=== PATIENT | female | born 1950 | race Caucasian/White ===

== ENCOUNTER → 2017-01-25 | Outpatient (CLI) | payer OTHER ==
[~2017-01-25] MED LIST: ESTR1TAB5 PO; LACT1TAB4 PO; OMEP40CA6 PO
[2017-01-25 11:38] LABS: HEMOGLOBIN 11.3 g/dL (11.7-16.4); WHITE BLOOD COUNT 6.5 x10^3/uL (3.4-10)
[2017-01-25 11:49] LABS: BLOOD UREA NITROGEN 18 mg/dL (7-18)
[2017-01-25 11:59] LABS: ASPARTATE AMINO TRANSFERASE 19 U/L (15-37)
== END | disposition home or self-care (01) ==
LOC: LAB 11:21
PROVIDERS: ATTEND Obstetrics & Gynecology Female Pelvic Medicine and Reconstructive Surgery
DX: Z00.01 Encounter for general adult medical examination with abnormal findings (principal); Z13.820 Encounter for screening for osteoporosis; Z13.29 Encounter for screening for other suspected endocrine disorder; E55.9 Vitamin D deficiency, unspecified; E78.5 Hyperlipidemia, unspecified
CPT/HCPCS: 36415; 80053; 80061; 82306; 84443; 85025

== ENCOUNTER → 2017-04-11 | Outpatient (CLI) | payer OTHER | END | disposition home or self-care (01) | LOC: CFH 08:09 | PROVIDERS: ATTEND Surgery | DX: Z12.31 Encounter for screening mammogram for malignant neoplasm of breast (principal) | CPT/HCPCS: 77063; G0202 ==

== ENCOUNTER 2017-06-19 16:24 | Emergency (ER) | payer OTHER, MEDICARE ==
[~2017-06-19] VITALS: Ht 167.6 cm; Wt 56.8 kg
[2017-06-19] MEDS ORDERED: ONDANSETRON 2MG/ML, 2ML IVPush ONE (17:00)
[2017-06-19] MEDS ORDERED: SODIUM CHLORIDE FLUSH 10ML SYR IVF ONE (17:00)
[2017-06-19] MEDS ORDERED: SODIUM CHLORIDE 0.9% 1,000ML IVBOLUS ONE (17:00)
[2017-06-19 17:05] LABS: BASOPHILS # (AUTO) 0.01 x10^3/uL (0-0.1); BASOPHILS % (AUTO) 0 % (0-1); EOSINOPHILS % (AUTO) 0 % (1-7); LYMPHOCYTES # (AUTO) 0.33 x10^3/uL (1-3.4); LYMPHOCYTES % (AUTO) 3 % (22-44); MD NO; MEAN CORPUSCULAR HEMOGLOBIN 29.6 pg (27.0-34.8); MEAN CORPUSCULAR HGB CONC 33.7 g/dL (32.4-35.8); MEAN CORPUSCULAR VOLUME 87.9 fL (80-100); MEAN PLATELET VOLUME 8.7 fL (7.4-10.4); MONOCYTES % (AUTO) 5 % (2-9); NEUTROPHILS # (AUTO) 9.44 x10^3/uL (1.8-6.8); NEUTROPHILS % (AUTO) 92 % (42-75); PLATELET COUNT 303 x10^3/uL (130-400); RED BLOOD COUNT 4.36 x10^6/uL (3.82-5.3); RED CELL DISTRIBUTION WIDTH 13.2 % (9.6-15.2)
[2017-06-19 17:11] LABS: ALANINE AMINOTRANSFERASE 37 U/L (12-78); ALBUMIN 3.8 g/dL (3.4-5.0); ANION GAP 10 mmol/L (5-15); CALCIUM 8.7 mg/dL (8.5-10.1); CHLORIDE 106 mmol/L (98-107); CREATININE 0.74 mg/dL (0.55-1.02)
[2017-06-19 17:14] LABS: ALKALINE PHOSPHATASE 52 U/L (45-117); BILIRUBIN,TOTAL 1.3 mg/dL (0.2-1.0)
[2017-06-19] MEDS ORDERED: HYDROmorphone 2 MG/ML, 1ML ONE (18:11)
[2017-06-19] MEDS ORDERED: ONDANSETRON 2MG/ML, 2ML ONE (18:12)
[2017-06-19] MEDS: HYDROmorphone 1 MG/ML, 1ML IVPush PRN ×2 (18:14→18:31)
[2017-06-19] MEDS ORDERED: OMNIPAQUE 350 MG/ML, 100ML BOTTLE ONE (19:11)
[2017-06-19 20:08] LABS: MICROSCOPIC AUTO
[2017-06-19 20:11] LABS: CULTURE INDICATED? NO
[2017-06-19 20:20] VITALS: BP 124/63
== END 2017-06-19 20:26 | disposition home or self-care (01) ==
LOC: ED 20:20
DX: K56.609 Unspecified intestinal obstruction, unspecified as to partial versus complete obstruction (principal); K50.90 Crohn's disease, unspecified, without complications
CPT/HCPCS: 36415; 71045; 74177; 80053; 81001; 83690; 85025; 93005; 96361; 96374; 96375; 99285; J1170; J2405; J7030; Q9967

== ENCOUNTER → 2018-03-30 | Outpatient (CLI) | payer OTHER | END | disposition home or self-care (01) | LOC: CFH 15:09 | PROVIDERS: ATTEND Obstetrics & Gynecology Female Pelvic Medicine and Reconstructive Surgery | DX: Z12.31 Encounter for screening mammogram for malignant neoplasm of breast (principal); D24.1 Benign neoplasm of right breast | CPT/HCPCS: 77063; 77067 ==

== ENCOUNTER 2018-07-16 11:09 | Day surgery (SDC) | payer OTHER ==
[~2018-07-16] VITALS: Ht 165.1 cm; Wt 59.0 kg
[2018-07-16] MEDS ORDERED: MIDAZOLAM 1 MG/ML, 2ML ONE (11:48)
[2018-07-16] MEDS ORDERED: FENTANYL PF 250 MCG/5ML ONE (11:49)
[2018-07-16] MEDS ORDERED: PROPOFOL 10 MG/ML, 20ML ONE (11:49)
[2018-07-16] MEDS ORDERED: KETOROLAC 30 MG/1 ML ONE (11:50)
[2018-07-16] MEDS ORDERED: DEXAMETHASONE 4 MG/ML, 1ML ONE ×2 (11:50)
[2018-07-16] MEDS ORDERED: ONDANSETRON 2MG/ML, 2ML ONE (11:50)
[2018-07-16] MEDS ORDERED: CEFAZOLIN 1,000 MG ONE ×2 (11:50)
[2018-07-16] MEDS ORDERED: SODIUM CHLORIDE 0.9% PF 10ML ONE (11:50)
[2018-07-16] MEDS ORDERED: LACTATED RINGERS 1,000 ML IV SCH ×2 (11:51→13:19)
[2018-07-16 11:52] VITALS: BP 144/90
[2018-07-16] MEDS ORDERED: PLEASE ENTER HEIGHT AND WEIGHT MC SCH (12:00)
[2018-07-16] MEDS ORDERED: BUPIVACAINE/PF 0.25% ONE (12:19)
[2018-07-16] MEDS ORDERED: PROMETHAZINE 12.5 MG SUPP PR PRN (12:30)
[2018-07-16] MEDS ORDERED: HYDROmorphone 2 MG/ML, 1ML IVPush PRN (12:30)
[2018-07-16] MEDS ORDERED: THROMBIN 5,000 UNIT VIAL TP ONE (12:30)
[2018-07-16] MEDS ORDERED: PROMETHAZINE 25 MG/ML, 1ML IV PRN (12:30)
[2018-07-16] MEDS ORDERED: PROMETHAZINE 25 MG SUPP PR PRN (12:30)
[2018-07-16] MEDS ORDERED: MEPERIDINE/PF 25MG/0.5ML IVPush PRN (12:30)
[2018-07-16] MEDS ORDERED: ONDANSETRON 2MG/ML, 2ML IV PRN (12:30)
[2018-07-16] MEDS ORDERED: ONDANSETRON ODT 8 MG PO PRN (12:30)
[2018-07-16] MEDS ORDERED: hydrALAzine 20 MG/ML, 1ML IV PRN (12:30)
[2018-07-16] MEDS ORDERED: ACETAMINOPHEN 325 MG TABLET PO PRN (12:30)
[2018-07-16] MEDS ORDERED: OXYcodone 5 MG/5 ML ORAL.SOL UDC PO PRN (12:30)
[2018-07-16] MEDS ORDERED: PROMETHAZINE 25 MG/ML, 1ML IM PRN ×2 (12:30)
[2018-07-16] MEDS ORDERED: FENTANYL PF 100 MCG/2ML IV PRN (12:30)
[2018-07-16] MEDS ORDERED: LABETALOL 5MG/ML, 20ML IV PRN (12:30)
[2018-07-16] MEDS ORDERED: HYDROcodone/APAP 5/325 TABLET PO PRN (13:30)
[2018-07-16] MEDS ORDERED: ONDANSETRON 2MG/ML, 2ML IVPush PRN (13:30)
[2018-07-16] MEDS ORDERED: IBUPROFEN 600 MG TABLET PO PRN (13:30)
[2018-07-16] MEDS ORDERED: FENTANYL PF 100 MCG/2ML ONE (13:42)
== END 2018-07-16 17:00 | disposition home or self-care (01) ==
LOC: OUT 11:09
PROVIDERS: ATTEND Obstetrics & Gynecology Female Pelvic Medicine and Reconstructive Surgery
DX: N72 Inflammatory disease of cervix uteri (principal); Z90.49 Acquired absence of other specified parts of digestive tract; Z98.890 Other specified postprocedural states; Z98.51 Tubal ligation status; Z88.6 Allergy status to analgesic agent
CPT/HCPCS: 57522; 88305; 88307; 93005; J1100; J1885; J2250; J2405; J2704; J3010; J3490; J7120; 88341; 88342; J0690

== ENCOUNTER → 2018-11-21 | Outpatient (CLI) | payer OTHER ==
[~2018-11-21] MED LIST changes: +FLUO20TA25 PO; +NORE1TAB7 PO
[2018-11-21 09:11] LABS: BASOPHILS # (AUTO) 0.02 x10^3/uL (0-0.1); BASOPHILS % (AUTO) 0 % (0-1); EOSINOPHILS # (AUTO) 0.23 x10^3/uL (0-0.4); EOSINOPHILS % (AUTO) 4 % (1-7); LYMPHOCYTES # (AUTO) 0.97 x10^3/uL (1-3.4); LYMPHOCYTES % (AUTO) 16 % (22-44); MD NO; MEAN CORPUSCULAR HEMOGLOBIN 29.5 pg (27.0-34.8); MEAN CORPUSCULAR HGB CONC 32.9 g/dL (32.4-35.8); MEAN CORPUSCULAR VOLUME 89.8 fL (80-100); MEAN PLATELET VOLUME 8.1 fL (7.4-10.4); MONOCYTES # (AUTO) 0.56 x10^3/uL (0.2-0.8); MONOCYTES % (AUTO) 9 % (2-9); NEUTROPHILS # (AUTO) 4.34 x10^3/uL (1.8-6.8); NEUTROPHILS % (AUTO) 71 % (42-75); PLATELET COUNT 277 x10^3/uL (130-400); RED BLOOD COUNT 3.85 x10^6/uL (3.82-5.3); RED CELL DISTRIBUTION WIDTH 13.1 % (9.6-15.2)
== END | disposition home or self-care (01) ==
LOC: STAR 08:04
PROVIDERS: ATTEND Obstetrics & Gynecology Female Pelvic Medicine and Reconstructive Surgery
DX: Z01.818 Encounter for other preprocedural examination (principal); R87.613 High grade squamous intraepithelial lesion on cytologic smear of cervix (HGSIL); R94.31 Abnormal electrocardiogram [ECG] [EKG]
CPT/HCPCS: 36415; 85025; 93005

== ENCOUNTER 2018-11-26 05:51 | Day surgery (SDC) | payer OTHER ==
[~2018-11-26] VITALS: Ht 167.6 cm; Wt 60.2 kg
[2018-11-26 06:33] VITALS: BP 163/96
[2018-11-26] MEDS ORDERED: FENTANYL PF 250 MCG/5ML ONE ×2 (06:42→09:49)
[2018-11-26] MEDS ORDERED: MIDAZOLAM 1 MG/ML, 2ML ONE (06:42)
[2018-11-26] MEDS ORDERED: EPINEPHRINE 1 MG/ML, 1ML ONE (06:43)
[2018-11-26] MEDS ORDERED: BUPIVACAINE/PF 0.25% ONE (06:43)
[2018-11-26] MEDS ORDERED: PHENYLEPHRINE 10 MG/ML ONE (06:45)
[2018-11-26] MEDS ORDERED: GLYCOPYRROLATE 0.2MG/1ML, 5ML ONE (06:49)
[2018-11-26] MEDS ORDERED: ONDANSETRON 2MG/ML, 2ML ONE (06:49)
[2018-11-26] MEDS ORDERED: PROPOFOL 10 MG/ML, 20ML ONE (06:49)
[2018-11-26] MEDS ORDERED: DEXAMETHASONE 4 MG/ML, 1ML ONE (06:49)
[2018-11-26] MEDS ORDERED: NEOSTIGMINE 1 MG/ML, 10ML ONE (06:49)
[2018-11-26] MEDS ORDERED: ROCURONIUM 10MG/ML,5ML ONE (06:49)
[2018-11-26] MEDS ORDERED: CEFAZOLIN 1,000 MG ONE (06:49)
[2018-11-26] MEDS ORDERED: ACETAMINOPHEN 500 MG TABLET PO ONE (07:00)
[2018-11-26] MEDS ORDERED: SCOPOLAMINE PATCH, 1.5MG PATCH.TD72 TD ONE (07:00)
[2018-11-26] MEDS ORDERED: GABAPENTIN 300 MG CAPSULE PO ONE (07:00)
[2018-11-26] MEDS ORDERED: FLUORESCEIN SODIUM 500 MG/5 ML ONE (07:02)
[2018-11-26] MEDS ORDERED: LACTATED RINGERS 1,000 ML IV SCH ×2 (07:18→10:58)
[2018-11-26] MEDS ORDERED: LABETALOL 5MG/ML, 20ML IV PRN (07:30)
[2018-11-26] MEDS ORDERED: PROMETHAZINE 12.5 MG SUPP PR PRN (07:30)
[2018-11-26] MEDS ORDERED: HALOPERIDOL 5 MG/ML IV PRN (07:30)
[2018-11-26] MEDS ORDERED: PROMETHAZINE 25 MG/ML, 1ML IV PRN (07:30)
[2018-11-26] MEDS ORDERED: PROMETHAZINE 25 MG/ML, 1ML IM PRN ×2 (07:30)
[2018-11-26] MEDS ORDERED: HYDROmorphone 2 MG/ML, 1ML IVPush PRN (07:30)
[2018-11-26] MEDS ORDERED: ONDANSETRON ODT 8 MG PO PRN (07:30)
[2018-11-26] MEDS ORDERED: hydrALAzine 20 MG/ML, 1ML IV PRN (07:30)
[2018-11-26] MEDS ORDERED: ONDANSETRON 2MG/ML, 2ML IV PRN (07:30)
[2018-11-26] MEDS ORDERED: MEPERIDINE/PF 25MG/0.5ML IVPush PRN (07:30)
[2018-11-26] MEDS ORDERED: PROMETHAZINE 25 MG SUPP PR PRN (07:30)
[2018-11-26] MEDS ORDERED: DIAZEPAM 5 MG TABLET PO ONE (08:00)
[2018-11-26] MEDS ORDERED: HYDROcodone/APAP 5/325 TABLET PO PRN (11:00)
[2018-11-26] MEDS ORDERED: IBUPROFEN 600 MG TABLET PO PRN (11:00)
[2018-11-26] MEDS ORDERED: ONDANSETRON 2MG/ML, 2ML IVPush PRN (11:00)
[2018-11-26] MEDS ORDERED: PROMETHAZINE 12.5 MG SUPP PR ONE (11:00)
[2018-11-26] MEDS ORDERED: OXYcodone 5 MG/5 ML ORAL.SOL UDC ONE ×2 (11:21→11:55)
[2018-11-26] MEDS: OXYcodone 5 MG/5 ML ORAL.SOL UDC PO PRN ×2 (11:22→11:57)
[2018-11-26] MEDS ORDERED: FENTANYL PF 100 MCG/2ML ONE (11:28)
[2018-11-26] MEDS: FENTANYL PF 100 MCG/2ML IV PRN ×3 (11:30→11:48)
[2018-11-26] MEDS ORDERED: KETOROLAC 30 MG/1 ML ONE (15:31)
== END 2018-11-26 17:50 | disposition home or self-care (01) ==
LOC: OUT 05:51
PROVIDERS: ATTEND Obstetrics & Gynecology Female Pelvic Medicine and Reconstructive Surgery
DX: D06.0 Carcinoma in situ of endocervix (principal); N80.3 Endometriosis of pelvic peritoneum; N84.0 Polyp of corpus uteri; K38.8 Other specified diseases of appendix; N73.6 Female pelvic peritoneal adhesions (postinfective); K21.9 Gastro-esophageal reflux disease without esophagitis; K50.90 Crohn's disease, unspecified, without complications; Z72.89 Other problems related to lifestyle; Z79.899 Other long term (current) drug therapy; Z88.8 Allergy status to other drugs, medicaments and biological substances; Z90.49 Acquired absence of other specified parts of digestive tract; Z98.1 Arthrodesis status; Z98.890 Other specified postprocedural states
CPT/HCPCS: 58552; 88304; 88307; J0171; J0690; J1100; J1885; J2250; J2370; J2405; J2704; J2710; J3010; J3490; J7120; S2900

== ENCOUNTER → 2018-12-28 | Outpatient (CLI) | payer OTHER | END | disposition home or self-care (01) | LOC: CFH 15:04 | PROVIDERS: ATTEND Orthopaedic Surgery | DX: M75.102 Unspecified rotator cuff tear or rupture of left shoulder, not specified as traumatic (principal); M19.012 Primary osteoarthritis, left shoulder; M75.92 Shoulder lesion, unspecified, left shoulder; M25.412 Effusion, left shoulder; M75.42 Impingement syndrome of left shoulder ==

== ENCOUNTER 2019-01-21 13:07 | Day surgery (SDC) | payer OTHER ==
[~2019-01-21] VITALS: Ht 167.6 cm; Wt 59.0 kg
[2019-01-21 19:40] VITALS: BP 135/86
== END 2019-01-21 20:35 | disposition home or self-care (01) ==
LOC: OUT 13:07 → 4NOR 18:36 → OUT 20:35
PROVIDERS: ATTEND Orthopaedic Surgery
DX: S46.012A Strain of muscle(s) and tendon(s) of the rotator cuff of left shoulder, initial encounter (principal); S46.112A Strain of muscle, fascia and tendon of long head of biceps, left arm, initial encounter; S43.432A Superior glenoid labrum lesion of left shoulder, initial encounter; M75.42 Impingement syndrome of left shoulder; M94.212 Chondromalacia, left shoulder; M19.90 Unspecified osteoarthritis, unspecified site; K21.9 Gastro-esophageal reflux disease without esophagitis; K50.90 Crohn's disease, unspecified, without complications; Z72.89 Other problems related to lifestyle; Z79.899 Other long term (current) drug therapy; Z88.5 Allergy status to narcotic agent; Z82.61 Family history of arthritis; W19.XXXA Unspecified fall, initial encounter; Y93.89 Activity, other specified; Y92.89 Other specified places as the place of occurrence of the external cause; Y99.8 Other external cause status
CPT/HCPCS: 29823; 29826; 29827; 29828; 64415; C1713; J0171; J0690; J1100; J2175; J2250; J2370; J2405; J2704; J2710; J3010; J3490; J7120; G0378; J1885

== ENCOUNTER → 2019-08-02 | Outpatient (CLI) | payer OTHER ==
[~2019-08-02] MED LIST changes: +ACET-1600 PO; +OMEP40CA42 PO; -OMEP40CA6 PO
== END | disposition home or self-care (01) ==
LOC: CFH 13:42
PROVIDERS: ATTEND Obstetrics & Gynecology Female Pelvic Medicine and Reconstructive Surgery
DX: Z12.31 Encounter for screening mammogram for malignant neoplasm of breast (principal); N64.89 Other specified disorders of breast
CPT/HCPCS: 77067

== ENCOUNTER → 2019-09-17 | Outpatient (CLI) | payer OTHER ==
[2019-09-17 10:23] LABS: BASOPHILS # (AUTO) 0.02 x10^3/uL (0-0.1); BASOPHILS % (AUTO) 0 % (0-1); EOSINOPHILS # (AUTO) 0.22 x10^3/uL (0-0.4); EOSINOPHILS % (AUTO) 4 % (1-7); LYMPHOCYTES # (AUTO) 1.11 x10^3/uL (1-3.4); LYMPHOCYTES % (AUTO) 21 % (22-44); MD NO; MEAN CORPUSCULAR HEMOGLOBIN 29.2 pg (27.0-34.8); MEAN CORPUSCULAR HGB CONC 33.1 g/dL (32.4-35.8); MEAN CORPUSCULAR VOLUME 88.1 fL (80-100); MEAN PLATELET VOLUME 7.9 fL (7.4-10.4); MONOCYTES # (AUTO) 0.53 x10^3/uL (0.2-0.8); MONOCYTES % (AUTO) 10 % (2-9); NEUTROPHILS # (AUTO) 3.53 x10^3/uL (1.8-6.8); NEUTROPHILS % (AUTO) 65 % (42-75); PLATELET COUNT 296 x10^3/uL (130-400); RED BLOOD COUNT 4.16 x10^6/uL (3.82-5.3); RED CELL DISTRIBUTION WIDTH 13.8 % (9.6-15.2)
[2019-09-17 10:33] LABS: ALANINE AMINOTRANSFERASE 29 U/L (12-78); ALBUMIN 3.7 g/dL (3.4-5.0); ANION GAP 7 mmol/L (5-15); CALCIUM 8.9 mg/dL (8.5-10.1); CHLORIDE 108 mmol/L (98-107); CHOLESTEROL, TOTAL 261 mg/dL (140-239); CREATININE 0.86 mg/dL (0.55-1.02)
[2019-09-17 10:42] LABS: ALKALINE PHOSPHATASE 50 U/L (45-117); BILIRUBIN,TOTAL 0.8 mg/dL (0.2-1.0); FREE T4 (FREE THYROXINE) 0.87 ng/dL (0.76-1.46); HDL CHOL % 25 % (28-40); HDL CHOLESTEROL (DIRECT) 66 mg/dL (40-60); LDL CHOLESTEROL,CALCULATED 167 mg/dL (54-169); LDL/HDL RATIO 2.5 (0.5-3.0); TOTAL PROTEIN 7.9 g/dL (6.4-8.2); TRIGLYCERIDES 141 mg/dL (50-200); VLDL CHOLESTEROL 28 mg/dL (0-25)
== END | disposition home or self-care (01) ==
LOC: LAB 10:05
PROVIDERS: ATTEND Nurse Practitioner Obstetrics & Gynecology
DX: Z00.00 Encounter for general adult medical examination without abnormal findings (principal)
CPT/HCPCS: 36415; 80053; 80061; 82306; 83525; 84439; 84443; 85025

== ENCOUNTER 2020-07-09 06:56 | Day surgery (SDC) | payer OTHER ==
[~2020-07-09] VITALS: Ht 167.6 cm; Wt 59.0 kg
[2020-07-09 07:22] VITALS: BP 145/85
[2020-07-09] MEDS ORDERED: CHLORHEXIDINE 15 ML UDC ONE (07:34)
[2020-07-09] MEDS ORDERED: MIDAZOLAM 1 MG/ML, 2ML ONE (07:53)
[2020-07-09] MEDS ORDERED: FENTANYL PF 100 MCG/2ML ONE (07:53)
[2020-07-09] MEDS ORDERED: LACTATED RINGERS 1,000 ML IV SCH (08:00)
[2020-07-09] MEDS ORDERED: CHLORHEXIDINE 15 ML UDC MM ONE (08:00)
[2020-07-09 08:05] LABS: BASOPHILS % (AUTO) 1 % (0-1); EOSINOPHILS % (AUTO) 3 % (1-7); LYMPHOCYTES % (AUTO) 15 % (22-44); MEAN CORPUSCULAR HEMOGLOBIN 29.6 pg (27.0-34.8); MEAN CORPUSCULAR HGB CONC 33.1 g/dL (32.4-35.8); MONOCYTES % (AUTO) 13 % (2-9); NEUTROPHILS % (AUTO) 68 % (42-75); PLATELET COUNT 254 x10^3/uL (130-400); RED BLOOD COUNT 3.75 x10^6/uL (3.82-5.3); RED CELL DISTRIBUTION WIDTH 13.3 % (9.6-15.2)
[2020-07-09 08:12] LABS: MD NO
[2020-07-09 08:14] LABS: ALBUMIN 3.7 g/dL (3.4-5.0); ANION GAP 8 mmol/L (5-15); CHLORIDE 109 mmol/L (98-107)
[2020-07-09 08:19] LABS: ALANINE AMINOTRANSFERASE 21 U/L (12-78); ALKALINE PHOSPHATASE 61 U/L (45-117); BILIRUBIN,TOTAL 0.9 mg/dL (0.2-1.0)
[2020-07-09] MEDS ORDERED: BUPIVACAINE/PF 0.5% ONE (08:29)
[2020-07-09] MEDS ORDERED: EPINEPHRINE 1 MG/ML, 1ML ONE (08:30)
[2020-07-09] MEDS ORDERED: CEFAZOLIN 1,000 MG ONE (08:41)
[2020-07-09] MEDS ORDERED: ONDANSETRON 2MG/ML, 2ML ONE (08:41)
[2020-07-09] MEDS ORDERED: KETOROLAC 30 MG/1 ML ONE (08:41)
[2020-07-09] MEDS ORDERED: SUCCINYLCHOLINE 20 MG/ML, 10ML ONE (08:41)
[2020-07-09] MEDS ORDERED: PROPOFOL 10 MG/ML, 20ML ONE (08:41)
[2020-07-09] MEDS ORDERED: MEPERIDINE/PF 25MG/0.5ML IVPush PRN (09:30)
[2020-07-09] MEDS ORDERED: ACETAMINOPHEN 325 MG TABLET PO PRN (09:30)
[2020-07-09] MEDS ORDERED: FENTANYL PF 100 MCG/2ML IV PRN (09:30)
[2020-07-09] MEDS ORDERED: DIPHENHYDRAMINE 50 MG/ML, 1ML IVPush PRN (09:30)
[2020-07-09] MEDS ORDERED: ONDANSETRON 2MG/ML, 2ML IVPush PRN (09:30)
[2020-07-09] MEDS ORDERED: HYDROmorphone 1 MG/ML, 1ML INJ IVPush PRN (09:30)
[2020-07-09] MEDS ORDERED: OXYcodone 5 MG/5 ML ORAL.SOL UDC PO PRN (09:30)
[2020-07-09] MEDS ORDERED: PROMETHAZINE 25 MG/ML, 1ML IVPush PRN (09:30)
== END 2020-07-09 12:25 | disposition home or self-care (01) ==
LOC: OUT 06:56
PROVIDERS: ATTEND Surgery
DX: D48.1 Neoplasm of uncertain behavior of connective and other soft tissue (principal); K21.9 Gastro-esophageal reflux disease without esophagitis; Z20.822 Contact with and (suspected) exposure to COVID-19; Z79.899 Other long term (current) drug therapy; Z88.5 Allergy status to narcotic agent; Z90.49 Acquired absence of other specified parts of digestive tract; Z98.51 Tubal ligation status; Z98.890 Other specified postprocedural states; Z80.0 Family history of malignant neoplasm of digestive organs
CPT/HCPCS: 21933; 36415; 80053; 85025; 87635; 88304; 93005; J0171; J0330; J0690; J1885; J2250; J2405; J2704; J3010; J7120; 88305

== ENCOUNTER 2020-08-27 10:25 | Outpatient (CLI) | payer OTHER | END 2020-08-27 23:59 | disposition home or self-care (01) | LOC: CFH 10:25 | PROVIDERS: ATTEND Obstetrics & Gynecology Female Pelvic Medicine and Reconstructive Surgery | DX: Z12.31 Encounter for screening mammogram for malignant neoplasm of breast (principal) | CPT/HCPCS: 77063; 77067 ==

== ENCOUNTER 2020-10-18 22:01 | Inpatient (IN) | payer OTHER ==
[~2020-10-18] VITALS: Ht 167.6 cm; Wt 62.3 kg
[2020-10-18] MEDS ORDERED: SODIUM CHLORIDE 0.9% 1,000ML IVBOLUS ONE (22:30)
[2020-10-18] MEDS ORDERED: ONDANSETRON 2MG/ML, 2ML IVPush ONE (22:30)
[2020-10-18] MEDS ORDERED: HYDROmorphone 1 MG/ML, 1ML INJ IV ONE (22:30)
[2020-10-18] MEDS ORDERED: HYDROmorphone 1 MG/ML, 1ML INJ ONE (22:34)
[2020-10-18] MEDS ORDERED: ONDANSETRON 2MG/ML, 2ML ONE (22:34)
--- NOTE | 2020-10-18 22:48 | NUR ---
IV started, labs drawn + 1 set blood cultures. Pt medicate per emar for pain/nausea. Pt understand need of urine sample. IV fluids infusing, vss. Pt awaiting CT study.
[2020-10-18 23:00] LABS: BASOPHILS % (AUTO) 0 % (0-1); EOSINOPHILS % (AUTO) 1 % (1-7); LYMPHOCYTES % (AUTO) 6 % (22-44); MEAN CORPUSCULAR HEMOGLOBIN 28.6 pg (27.0-34.8); MEAN CORPUSCULAR HGB CONC 32.9 g/dL (32.4-35.8); MEAN PLATELET VOLUME 8.7 fL (7.4-10.4); MONOCYTES % (AUTO) 4 % (2-9); NEUTROPHILS % (AUTO) 89 % (42-75); PLATELET COUNT 308 x10^3/uL (130-400); RED CELL DISTRIBUTION WIDTH 14.4 % (9.6-15.2)
[2020-10-18 23:01] LABS: ALANINE AMINOTRANSFERASE 24 U/L (12-78); ALBUMIN 4.2 g/dL (3.4-5.0); ANION GAP 10 mmol/L (5-15); CALCIUM 9.4 mg/dL (8.5-10.1); CHLORIDE 106 mmol/L (98-107); CREATININE 0.96 mg/dL (0.55-1.02)
[2020-10-18 23:02] LABS: MD NO
[2020-10-18 23:03] LABS: ALKALINE PHOSPHATASE 54 U/L (45-117); BILIRUBIN,TOTAL 1.1 mg/dL (0.2-1.0); TOTAL PROTEIN 8.9 g/dL (6.4-8.2)
--- NOTE | 2020-10-18 23:23 | NUR ---
Pt returned from CT, IV Fluids cont infusing. Will try for urine sample after fluids finished infusing.
[2020-10-19 00:20] LABS: MICROSCOPIC NOT IND
[2020-10-19] MEDS ORDERED: MIDAZOLAM 1 MG/ML, 2ML ONE ×2 (00:28→01:15)
[2020-10-19] MEDS ORDERED: MIDAZOLAM 1 MG/ML, 2ML IVPush ONE (00:30)
[2020-10-19] MEDS ORDERED: OMNIPAQUE 350 MG/ML, 100ML BOTTLE ONE (01:16)
[2020-10-19] MEDS ORDERED: hydrALAzine 20 MG/ML, 1ML IVPush PRN (01:30)
[2020-10-19] MEDS ORDERED: PROMETHAZINE 25 MG/ML, 1ML IM PRN (01:30)
[2020-10-19] MEDS ORDERED: LIDOCAINE 4% TOPICAL SOLUTION 50 ML TP ONE (01:30)
[2020-10-19] MEDS ORDERED: ONDANSETRON ODT 4 MG PO PRN (01:30)
[2020-10-19] MEDS ORDERED: ONDANSETRON 2MG/ML, 2ML IVPush PRN (01:30)
[2020-10-19] MEDS ORDERED: OXYcodone IR 5MG TABLET PO PRN (01:30)
[2020-10-19] MEDS ORDERED: ACETAMINOPHEN 325 MG TABLET PO PRN (01:30)
[2020-10-19 01:49] LABS: HCT (SEDRATE) 37.3 % (34.6-47.8)
[2020-10-19] MEDS ORDERED: HYDROmorphone 1 MG/ML, 1ML INJ ONE (02:39)
[2020-10-19 03:23] VITALS: BP 174/97
[2020-10-19] MEDS: D5%-0.9% NACL 1,000 ML IV SCH ×3 (04:02→18:32)
[2020-10-19] MEDS: CEFTRIAXONE 2 GM in DEXTROSE 5% 50 ML IVPB SCH (04:02)
[2020-10-19] MEDS: HEPARIN 5,000 UNITS/ML, 1ML SQ SCH ×3 (04:04→22:08)
[2020-10-19] MEDS: METRONIDAZOLE PMX 500MG/100ML 100 ML IV SCH ×3 (05:14→22:06)
[2020-10-19 05:23] VITALS: BP 135/76
[2020-10-19 07:10] LABS: BASOPHILS % (AUTO) 1 % (0-1); EOSINOPHILS % (AUTO) 2 % (1-7); LYMPHOCYTES % (AUTO) 14 % (22-44); MEAN CORPUSCULAR HGB CONC 33.2 g/dL (32.4-35.8); MEAN PLATELET VOLUME 7.7 fL (7.4-10.4); MONOCYTES % (AUTO) 7 % (2-9); NEUTROPHILS % (AUTO) 77 % (42-75); PLATELET COUNT 257 x10^3/uL (130-400); RED BLOOD COUNT 3.62 x10^6/uL (3.82-5.3); RED CELL DISTRIBUTION WIDTH 14.1 % (9.6-15.2)
[2020-10-19 07:19] LABS: MD NO
[2020-10-19 07:21] LABS: ALANINE AMINOTRANSFERASE 18 U/L (12-78); ALBUMIN 3.3 g/dL (3.4-5.0); ANION GAP 5 mmol/L (5-15); CALCIUM 8.2 mg/dL (8.5-10.1); CHLORIDE 108 mmol/L (98-107); CREATININE 0.66 mg/dL (0.55-1.02)
[2020-10-19 07:26] LABS: ALKALINE PHOSPHATASE 40 U/L (45-117); BILIRUBIN,TOTAL 0.8 mg/dL (0.2-1.0); CHOL/HDL RATIO 3.5; CHOLESTEROL, TOTAL 246 mg/dL (140-239); HDL CHOL % 28 % (28-40); HDL CHOLESTEROL (DIRECT) 70 mg/dL (40-60); LDL CHOLESTEROL,CALCULATED 158 mg/dL (54-169); LDL/HDL RATIO 2.3 (0.5-3.0); TOTAL PROTEIN 7.4 g/dL (6.4-8.2); TRIGLYCERIDES 88 mg/dL (50-200); VLDL CHOLESTEROL 18 mg/dL (0-25)
[2020-10-19] MEDS: PANTOPRAZOLE 40 MG IV IVPush SCH (07:50)
[2020-10-19] MEDS ORDERED: HYDROmorphone 1 MG/ML, 1ML INJ IV ONE (08:00)
[2020-10-19 08:09] VITALS: BP 145/83
[2020-10-19] MEDS ORDERED: KETOROLAC 30 MG/1 ML IVPush ONE (14:00)
[2020-10-19 15:26] VITALS: BP 123/72
[2020-10-19] MEDS: methylPREDNISolone SOD SUCC 40 MG/ML IV SCH (16:41)
[2020-10-19 18:51] VITALS: BP 146/95
[2020-10-19] MEDS ORDERED: KETOROLAC 30 MG/1 ML IVPush PRN (20:30)
[2020-10-19] MEDS ORDERED: LORazepam 2 MG/ML, 1ML IVPush ONE (20:30)
[2020-10-20] MEDS: D5%-0.9% NACL 1,000 ML IV SCH ×2 (01:44→10:26)
[2020-10-20 03:47] VITALS: BP 119/62
[2020-10-20] MEDS: methylPREDNISolone SOD SUCC 40 MG/ML IV SCH ×2 (04:23→16:56)
[2020-10-20] MEDS: CEFTRIAXONE 2 GM in DEXTROSE 5% 50 ML IVPB SCH (04:23)
[2020-10-20] MEDS: METRONIDAZOLE PMX 500MG/100ML 100 ML IV SCH ×3 (05:34→22:23)
[2020-10-20] MEDS: HEPARIN 5,000 UNITS/ML, 1ML SQ SCH ×3 (05:34→22:23)
[2020-10-20 07:44] VITALS: BP 148/79
[2020-10-20] MEDS: PANTOPRAZOLE 40 MG IV IVPush SCH (08:11)
[2020-10-20 14:30] VITALS: BP 155/82
[2020-10-20 19:14] VITALS: BP 163/93
[2020-10-20] MEDS ORDERED: LORazepam 0.5MG TABLET PO PRN (23:00)
[2020-10-21 00:30] VITALS: BP 143/75
[2020-10-21] MEDS: CEFTRIAXONE 2 GM in DEXTROSE 5% 50 ML IVPB SCH (03:54)
[2020-10-21] MEDS: methylPREDNISolone SOD SUCC 40 MG/ML IV SCH (03:54)
[2020-10-21] MEDS: METRONIDAZOLE PMX 500MG/100ML 100 ML IV SCH (06:27)
[2020-10-21] MEDS: HEPARIN 5,000 UNITS/ML, 1ML SQ SCH (06:27)
[2020-10-21 06:54] VITALS: BP 157/79
[2020-10-21] MEDS: PANTOPRAZOLE 40 MG IV IVPush SCH (08:05)
[2020-10-21 12:41] VITALS: BP 164/89
[2020-10-21] MEDS ORDERED: PRED20TA PO (13:32)
== END 2020-10-21 14:35 | disposition home or self-care (01) | DRG 386 ==
LOC: ED 22:29 → EDIP 22:47 → UNDOADMIN 22:47 → EDIP 10-19 00:39 → 4NE 10-19 03:02 → DCLOUNGE 10-21 14:33
PROVIDERS: ADMIT Internal Medicine; ATTEND Family Medicine
PROC: 0D9670Z Drainage of Stomach with Drainage Device, Via Natural or Artificial Opening (ICD-10-PCS; principal; 2020-10-19)
DX: K50.112 Crohn's disease of large intestine with intestinal obstruction (principal); A09 Infectious gastroenteritis and colitis, unspecified; Z90.710 Acquired absence of both cervix and uterus; Z98.1 Arthrodesis status; Z90.49 Acquired absence of other specified parts of digestive tract
CPT/HCPCS: 36415; 74018; 96374; 96375; 99285; J7042; 71045; 74177; 80053; 80061; 81003; 83036; 83605; 83690; 83735; 84100; 85025; 85651; 86140; 86480; 86706; 87340; G0378; J0696; J1170; J1644; J1885; J2250; J2405; Q9967; C9113; J2060; J2920; J7030

== ENCOUNTER → 2020-12-08 | Outpatient (CLI) | payer OTHER ==
[~2020-12-08] MED LIST changes: -OMEP40CA42 PO; +OMEP40CA8 PO; +PRED20TA PO
[2020-12-08 17:13] LABS: BASOPHILS % (AUTO) 1 % (0-1); EOSINOPHILS % (AUTO) 5 % (1-7); LYMPHOCYTES % (AUTO) 22 % (22-44); MEAN CORPUSCULAR HEMOGLOBIN 29.8 pg (27.0-34.8); MEAN CORPUSCULAR HGB CONC 33.5 g/dL (32.4-35.8); MEAN PLATELET VOLUME 7.9 fL (7.4-10.4); MONOCYTES % (AUTO) 12 % (2-9); NEUTROPHILS % (AUTO) 61 % (42-75); PLATELET COUNT 241 x10^3/uL (130-400); RED BLOOD COUNT 3.72 x10^6/uL (3.82-5.3); RED CELL DISTRIBUTION WIDTH 14.3 % (9.6-15.2)
== END | disposition home or self-care (01) ==
LOC: LAB 16:43
PROVIDERS: ATTEND Internal Medicine Gastroenterology
DX: K50.90 Crohn's disease, unspecified, without complications (principal)
CPT/HCPCS: 36415; 85025; 86140

== ENCOUNTER → 2021-01-08 | Outpatient (CLI) | payer OTHER ==
[2021-01-08 15:35] LABS: BASOPHILS % (AUTO) 1 % (0-1); EOSINOPHILS % (AUTO) 3 % (1-7); LYMPHOCYTES % (AUTO) 24 % (22-44); MEAN CORPUSCULAR HEMOGLOBIN 29.2 pg (27.0-34.8); MEAN CORPUSCULAR HGB CONC 32.7 g/dL (32.4-35.8); MEAN PLATELET VOLUME 8.2 fL (7.4-10.4); MONOCYTES % (AUTO) 10 % (2-9); NEUTROPHILS % (AUTO) 64 % (42-75); PLATELET COUNT 273 x10^3/uL (130-400); RED BLOOD COUNT 4.01 x10^6/uL (3.82-5.3); RED CELL DISTRIBUTION WIDTH 13.5 % (9.6-15.2)
[2021-01-08 15:41] LABS: ANION GAP 3 mmol/L (5-15); CHLORIDE 109 mmol/L (98-107); CREATININE 0.86 mg/dL (0.55-1.02)
[2021-01-08 15:44] LABS: MICROSCOPIC AUTO
[2021-01-08 16:24] LABS: INTERNATIONAL NORMALIZED RATIO 0.99 (0.93-1.1); PROTHROMBIN TIME 10.6 Seconds (9.6-11.5)
== END | disposition home or self-care (01) ==
LOC: STAR 14:51
PROVIDERS: ATTEND Neurological Surgery
DX: Z01.818 Encounter for other preprocedural examination (principal); M43.16 Spondylolisthesis, lumbar region; M47.816 Spondylosis without myelopathy or radiculopathy, lumbar region; M48.061 Spinal stenosis, lumbar region without neurogenic claudication; R94.31 Abnormal electrocardiogram [ECG] [EKG]
CPT/HCPCS: 36415; 71046; 72110; 80048; 81001; 85025; 85610; 85730; 87086; 93005

== ENCOUNTER 2021-01-11 09:35 | Outpatient (CLI) | payer OTHER ==
[2021-01-11 09:50] LABS: BASOPHILS % (AUTO) 1 % (0-1); EOSINOPHILS % (AUTO) 4 % (1-7); LYMPHOCYTES % (AUTO) 25 % (22-44); MEAN CORPUSCULAR HEMOGLOBIN 29.4 pg (27.0-34.8); MEAN PLATELET VOLUME 7.9 fL (7.4-10.4); MONOCYTES % (AUTO) 14 % (2-9); NEUTROPHILS % (AUTO) 57 % (42-75); PLATELET COUNT 252 x10^3/uL (130-400); RED BLOOD COUNT 3.89 x10^6/uL (3.82-5.3); RED CELL DISTRIBUTION WIDTH 13.1 % (9.6-15.2)
[2021-01-11 11:31] LABS: CHLORIDE 107 mmol/L (98-107)
[2021-01-11 11:38] LABS: ALANINE AMINOTRANSFERASE 23 U/L (12-78); ALBUMIN 3.5 g/dL (3.4-5.0); ALKALINE PHOSPHATASE 49 U/L (45-117); ANION GAP 4 mmol/L (5-15); BILIRUBIN,TOTAL 0.8 mg/dL (0.2-1.0); CALCIUM 8.6 mg/dL (8.5-10.1); CREATININE 0.83 mg/dL (0.55-1.02); TOTAL PROTEIN 7.8 g/dL (6.4-8.2)
== END 2021-01-11 23:59 | disposition home or self-care (01) ==
LOC: LAB 09:35
PROVIDERS: ATTEND Internal Medicine Gastroenterology
DX: K50.012 Crohn's disease of small intestine with intestinal obstruction (principal)
CPT/HCPCS: 36415; 80053; 85025

== ENCOUNTER 2021-01-13 07:05 | Day surgery (SDC) | payer OTHER ==
[~2021-01-13] VITALS: Ht 167.6 cm; Wt 56.0 kg
[~2021-01-13 07:05] MED LIST changes: +BUPIVACAINE/PF 0.5% ONE; +EPINEPHRINE 1 MG/ML, 1ML ONE; +GENTAMICIN 80 MG/2 ML ONE; +VANCOMYCIN 1,000 MG ONE; +methylPREDNISolone SOD SUCC 125 MG/2 ML ONE
[2021-01-13 07:27] VITALS: BP 136/93
[2021-01-13 07:28] VITALS: BP 136/93
[2021-01-13] MEDS ORDERED: MIDAZOLAM 1 MG/ML, 2ML ONE ×2 (07:48→09:18)
[2021-01-13] MEDS ORDERED: FENTANYL PF 250 MCG/5ML ONE (07:48)
[2021-01-13] MEDS ORDERED: DEXAMETHASONE 4 MG/ML, 1ML ONE (07:49)
[2021-01-13] MEDS ORDERED: ONDANSETRON 2MG/ML, 2ML ONE (07:49)
[2021-01-13] MEDS ORDERED: PROPOFOL 100 ML ONE (07:49)
[2021-01-13] MEDS ORDERED: ROCURONIUM 10MG/ML,5ML ONE (07:49)
[2021-01-13] MEDS ORDERED: PROPOFOL 10 MG/ML, 20ML ONE (07:49)
[2021-01-13] MEDS ORDERED: GLYCOPYRROLATE 0.2MG/1ML, 5ML ONE (07:49)
[2021-01-13] MEDS ORDERED: CEFAZOLIN 1,000 MG ONE (07:49)
[2021-01-13] MEDS ORDERED: NEOSTIGMINE 1 MG/ML, 10ML ONE (07:49)
[2021-01-13] MEDS ORDERED: CHLORHEXIDINE 15 ML UDC ONE (07:53)
[2021-01-13] MEDS ORDERED: CHLORHEXIDINE 15 ML UDC PO ONE (08:00)
[2021-01-13] MEDS ORDERED: LACTATED RINGERS 1,000 ML IV SCH (08:00)
[2021-01-13] MEDS ORDERED: HALOPERIDOL 5 MG/ML IV PRN (09:30)
[2021-01-13] MEDS ORDERED: OXYcodone 5 MG/5 ML ORAL.SOL UDC PO PRN (09:30)
[2021-01-13] MEDS ORDERED: MEPERIDINE/PF 25MG/0.5ML IVPush PRN (09:30)
[2021-01-13] MEDS ORDERED: LABETALOL 5MG/ML, 20ML IV PRN (09:30)
[2021-01-13] MEDS ORDERED: HYDROmorphone 1 MG/ML, 1ML INJ IVPush PRN (09:30)
[2021-01-13] MEDS ORDERED: ACETAMINOPHEN 325 MG TABLET PO PRN (09:30)
[2021-01-13] MEDS ORDERED: FENTANYL PF 100 MCG/2ML IV PRN (09:30)
[2021-01-13] MEDS ORDERED: PROMETHAZINE 25 MG/ML, 1ML IVPush PRN (09:30)
[2021-01-13] MEDS ORDERED: hydrALAzine 20 MG/ML, 1ML IV PRN (09:30)
[2021-01-13] MEDS ORDERED: BUPIVACAINE/PF 0.25% INFIL ONE (10:16)
[2021-01-13] MEDS ORDERED: FENTANYL PF 100 MCG/2ML ONE (10:19)
[2021-01-13] MEDS ORDERED: FENTANYL PF 100 MCG/2ML EPIDPUSH ONE (10:29)
[2021-01-13] MEDS ORDERED: ACETAMINOPHEN 650 MG/20.3 ML UDC ONE (11:37)
[2021-01-13] MEDS ORDERED: OXYcodone 5 MG/5 ML ORAL.SOL UDC ONE (11:38)
== END 2021-01-13 15:45 | disposition home or self-care (01) ==
LOC: OUT 07:05
PROVIDERS: ATTEND Neurological Surgery
DX: M43.16 Spondylolisthesis, lumbar region (principal); M48.061 Spinal stenosis, lumbar region without neurogenic claudication; M48.07 Spinal stenosis, lumbosacral region; M71.38 Other bursal cyst, other site; K21.9 Gastro-esophageal reflux disease without esophagitis; K50.90 Crohn's disease, unspecified, without complications; Z79.891 Long term (current) use of opiate analgesic; Z79.899 Other long term (current) drug therapy; Z88.5 Allergy status to narcotic agent; Z98.890 Other specified postprocedural states; Z82.61 Family history of arthritis
CPT/HCPCS: 63047; 63267; 72100; J0171; J0690; J1100; J1580; J2250; J2405; J2704; J2710; J2930; J3010; J3370; J7120